=== PATIENT | female | born 1990 | race American Indian/Alaskan Native ===

== ENCOUNTER 2020-09-14 20:00 | Outpatient (CLI) | payer OTHER ==
[2020-09-14 21:38] VITALS: BP 120/74
--- NOTE | 2020-09-14 22:49 | Ultrasound Report ---
ULTRASOUND OBSTETRIC LIMITED ULTRASOUND BIOPHYSICAL PROFILE INDICATION / CLINICAL INFORMATION: BPP/INES/ PRESENTATION. Clinical Gestational Age (GA) in weeks, days: 37 weeks 1 day TECHNIQUE: Transabdominal. COMPARISON: None available. FINDINGS: Fetus A: BREATHING MOVEMENT = 2 GROSS BODY MOVEMENT = 2 TONE = 2 QUALITATIVE AMNIOTIC FLUID VOLUME = 2 TOTAL BIOPHYSICAL SCORE = 8/8 Fetus B: BREATHING MOVEMENT = 2 GROSS BODY MOVEMENT = 2 TONE = 2 QUALITATIVE AMNIOTIC FLUID VOLUME = 2 TOTAL BIOPHYSICAL SCORE = 8/8 HEART RATE (beats per minute): 146 bpm for fetus A, 147 bpm for fetus B. The largest pocket of amniotic fluid for twin A is 2.1 cm: 4.0 cm for twin B PRESENTATION: Cephalic. for twin A, breech for twin B ADDITIONAL FINDINGS: None. IMPRESSION: 1. Biophysical Score = 8/8 for both fetuses. 2. Twin A is in a cephalic presentation. Twin B is in a breech presentation. Signer Name: Tiana Chauhan MD Signed: 09/14/2020 10:45 PM Workstation Name: [id number]
== END 2020-09-14 23:00 | disposition home or self-care (01) ==
LOC: UNDOADMOB 20:00 → LD 20:00 → TRG 20:00 → LD 20:16 → UNDOADMIN 20:16 → TRG 23:00 → UNDODISIN 23:00 → EDSTATUS 09-15 11:30
PROVIDERS: ATTEND Obstetrics & Gynecology
DX: O32.1XX0 Maternal care for breech presentation, not applicable or unspecified (principal); Z3A.37 37 weeks gestation of pregnancy
CPT/HCPCS: 76815; 76819; G0378

== ENCOUNTER 2020-09-15 09:06 | Inpatient (IN) | payer OTHER ==
[2020-09-15] MEDS ORDERED: BICITRA ORAL LIQD 30ML PO SCH (10:00)
[2020-09-15] MEDS ORDERED: OXYTOCIN DRIP 30 UNITS/500 ML BAG IV SCH ×2 (10:00→18:36)
[2020-09-15] MEDS ORDERED: METOCLOPRAMIDE 10 MG/2 ML INJ IV SCH (10:00)
[2020-09-15] MEDS ORDERED: FAMOTIDINE 20 MG/2 ML INJ IV SCH (10:00)
[2020-09-15] MEDS: LACTATED RINGERS 1,000 ML IV SCH ×2 (10:10→11:05)
[2020-09-15 10:39] LABS: Basophils % (Auto) 0.6 % (0.0-1.8); Eosinophils # (Auto) 0.1 K/mm3 (0.0-0.4); Eosinophils % (Auto) 0.7 % (0.0-4.3); Hematocrit 34.5 % (30.3-42.9); Hemoglobin 11.6 gm/dl (10.1-14.3); Lymphocytes # (Auto) 1.4 K/mm3 (1.2-5.4); Lymphocytes % (Auto) 17.5 % (13.4-35.0); Mean Corpuscular HGB Conc 34 % (30-34); Mean Corpuscular Volume 89 fl (79-97); Monocytes # (Auto) 0.8 K/mm3 (0.0-0.8); Monocytes % (Auto) 10.1 % (0.0-7.3); Platelet Count 197 K/mm3 (140-440)
[2020-09-15] MEDS ORDERED: ceFAZolin/Water 2 GM/20 ML 2 GM/20 ML SYRINGE IV ONE (10:46)
--- NOTE | 2020-09-15 11:29 | Anesthesia Consultation ---
Anesthesia Consult and Med Hx Date of service: 09/15/20 - Airway Anesthetic Teeth Evaluation: Good ROM Head & Neck: Adequate Mental/Hyoid Distance: Adequate Mallampati Class: Class II Intubation Access Assessment: Probably Good - Pulmonary Exam CTA: Yes - Cardiac Exam Cardiac Exam: RRR - Pre-Operative Health Status ASA Pre-Surgery Classification: ASA2 Proposed Anesthetic Plan: Spinal - Pulmonary Hx Asthma: No - Cardiovascular System Hx Hypertension: No - Central Nervous System Hx Seizures: No Hx Psychiatric Problems: No - Endocrine Hx Renal Disease: No Hx Hypothyroidism: No Hx Hyperthyroidism: No - Hematic Hx Anemia: No Hx Sickle Cell Disease: No - Other Systems Hx Alcohol Use: No
--- NOTE | 2020-09-15 11:29 | Anesthesia Day of Surgery ---
Anesthesia Day of Surgery - Day of Surgery Patient Examined: Yes Patient H&P Reviewed: Yes Patient is NPO: Yes
--- NOTE | 2020-09-15 11:32 | History and Physical Report ---
History of Present Illness Date of examination: 09/15/20 Date of admission: 09/15/20 09:06 Chief complaint: here for c/section for twin gestation, twin B breech History of present illness: at 37.2wks by LMP c/w U/S. care at [facility]. Pt admits to FMx2, denies feeling ctx, LOF or vag bleeding or headache. Pt came to triage yesterday with vtx/vtx presentation in clinic however repeat u/s at the hospital with twin B the larger baby is breech and IUGR in twin A unchanged. Pt seen by [facility] high risk who recommend delivery at 37wks for twins with IUGR in twin A and marginal cord insertion in twin B Pt therefore did not get the induction and returned to hospital today for her scheduled primary section. Pt has known anemia and denies palpitation or shortness of breath or chest pain. 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, Low vitamin D and supplement received; ) Past Surgical History: no surgical history Social history: other (Marijuana abuse) - Obstetrical History : 4 (previa that resolved this preg at 16wk) Para: 2 Spontaneous Abortions: 1 Number of Living Children: 2 Medications and Allergies Allergies Allergy/AdvReac Type Severity Reaction Status Date / Time No Known Allergies Allergy Unverified 09/14/20 20:34 Home Medications Medication Instructions Recorded Confirmed Last Taken Type Ibuprofen [Motrin] 800 mg PO Q8HR PRN 14 Days #40 09/15/20 Unknown Rx tablet oxyCODONE /ACETAMINOPHEN [Percocet 2 tab PO Q4HR 14 Days #30 tab 09/15/20 Unknown Rx 5/325] Active Meds: Active Medications Citric Acid/Sodium Citrate (Bicitra Oral Liqd 30ml) 30 ml PO ONCE NOEMI Stop: 09/15/20 18:00 Last Admin: 09/15/20 10:58 Dose: 30 ml Documented by: Famotidine (Famotidine 20 Mg/2 Ml Inj) 20 mg IV ONCE NOEMI Stop: 09/15/20 18:00 Last Admin: 09/15/20 10:59 Dose: 20 mg Documented by: Lactated Ringer's (Lactated Ringers) 1,000 mls @ 2,250 mls/hr IV PREOP NOEMI Stop: 09/16/20 10:27 Last Admin: 09/15/20 11:05 Dose: 2,250 mls/hr Documented by: Oxytocin/Sodium Chloride (Pitocin/Ns 30 Unit/500ml) 30 units in 500 mls @ 0 mls/hr IV TITR NOEMI; Protocol Metoclopramide HCl (Metoclopramide 10 Mg/2 Ml Inj) 10 mg IV ONCE NOEMI Stop: 09/15/20 18:00 Last Admin: 09/15/20 10:58 Dose: 10 mg Documented by: - Vital Signs Vital signs: Vital Signs Pulse Pulse Ox 111 H 98 09/15/20 10:24 09/15/20 10:24 Temp Pulse Resp BP Pulse Ox 98.2 F 95 H 18 125/80 96 09/15/20 10:40 09/15/20 11:24 09/15/20 10:40 09/15/20 10:41 09/15/20 11:24 - Physical Exam Breasts: Positive: deferred Cardiovascular: Regular rate Abdomen: Positive: soft (anterior wall edema seen to lower abdomen) Genitourinary (Female): Positive: normal external genitalia Vulva: both: normal (no lesions) Vagina: Positive: normal moisture Uterus: Positive: enlarged (non-tender gravid with twins) Extremities: Positive: normal - Obstetrical FHR: category 1 (for both fetuses) Uterine Contraction Monitor Mode: External Cervical Dilatation: 2 (pelvic exma done in the OR after spinal done) Cervical Effacement Percentage: 50 station: -2 Uterine Contraction Pattern: Absent Results Result Diagrams: 09/15/20 15:15 Abnormal lab results 09/15/20 Range/Units 10:20 RDW 16.0 H (13.2-15.2) % [place] % (Auto) 10.1 H (0.0-7.3) % Seg Neutrophils % 71.1 H (40.0-70.0) % All other labs normal. Assessment and Plan term twin gestation with twin A with IUGR, twin B breech and is larger than twin A; No GBS results available; NO active herpetic lesions 1. Admit for primary section, NICU and anesthesiologist already aware. 2. Pt declines blood transfusion aware of the risks, benefits and alternatives 3. Discussed the risks, benefits and alternatives of section and consents signed All questions encouraged and answered
[2020-09-15] MEDS ORDERED: ceFAZolin/STERILE WATER 2 GM/20 ML SYRINGE IV NR (11:55)
[2020-09-15] MEDS ORDERED: dexAMETHasone 20 MG/5 ML VIAL ONE (12:12)
[2020-09-15] MEDS ORDERED: BUPIVACAINE/PF (0.5%) 5 MG/1 ML 30 ML VIAL INFILTRATI ONE (12:12)
[2020-09-15] MEDS ORDERED: KETOROLAC 30 MG/1 ML INJ ONE (12:12)
[2020-09-15] MEDS ORDERED: ONDANSETRON 4 MG/2 ML INJ ONE (12:12)
[2020-09-15] MEDS ORDERED: ceFAZolin/STERILE WATER 2 GM/20 ML SYRINGE IV ONE (12:15)
[2020-09-15] MEDS ORDERED: WATER FOR IRRIG STERILE 1,500 ML BOTTLE IR ONE (12:30)
[2020-09-15] MEDS ORDERED: SODIUM CHLORIDE 0.9% IRR 1,500 ML BOTTLE IR ONE (12:30)
[2020-09-15] MEDS ORDERED: LACTATED RINGERS 1,000 ML ONE (12:48)
--- NOTE | 2020-09-15 14:04 | Progress Note ---
Regional Anesthesia Block - Regional Anesthesia Block Start Time: 13:55 Stop Time: 14:00 Performed By:: CHARISSA PRESSLEY Procedure: U/S guided bilateral tap block performed for post-operative pain requested by Dr. Cohen. H&P & labs reviewed. Procedure explained, questions answered, consent obtained. Patient in the supine position with ekg, blood pressure cuff and pulse ox on and working in PACU. Timeout performed immediately before start of procedure. Probe placed in the mid-axillary line and the external oblique, internal oblique, and transverse abdominus muscles identified. Skin was cleansed with chlorahexadine 0.5% and allowed to dry. A 4" 20 G Galo echogenic needle was advanced in plane until the tip was in the fascial plane between the internal oblique and the transverse abdominus. After negative aspiration 35 ml/side of [30 ml 0.5% Bupivacaine], [10 mg dexamethasone], and [40 ml sterile saline] was injected in 5 ml increments with negative aspiration in between. Patient tolerated procedure well.
--- NOTE | 2020-09-15 14:04 | Progress Note ---
Spinal Anesthesia Block - Spinal Anesthesia Block Start Time: 11:59 Stop Time: 12:01 Performed by:: CHARISSA PRESSLEY Procedure: Sitting, sterile chlorahexadine 0.5% prep/drape, 1% lidocaine skin local, 25G spinal needle + introducer at L3-4, + CSF, - Heme, [1.9 ml 0.5% bupivacaine + 10 mcg dexmedetomidine] injected, drape removed, patient positioned supine with left uterine displacement, and spinal level verified to be adequate prior to surgery.
--- NOTE | 2020-09-15 14:24 | Procedure Note ---
OB Delivery Note - Delivery Date of Delivery: 09/15/20 Surgeon: AFSHAN DIAS Estimated blood loss: other (823cc total anesthesia and QBL by nurse) - Section Preop diagnosis: other (twin gestation with twin B breech; Twin A with IUGR) Postop diagnosis: other (twin A normal wt and Twin B transverse, back down) section procedure: primary low transverse Disposition: floor Complications: none Narrative: Date: 09/15/20 Surgeon: Afshan Dias MD Preop Dx: Twin gestation, twin A with IUGR, and twin B breech with marginal cord insertion; pt with anterior abdominal wall edema and pt already shaved prior to coming to the hospital Postop Dx: Same, but twin A normal weight and twin B transverse lie with back downward and marginal cord insertion Procedure : Primary Low transverse section Anesthesia: Spinal with tap block in recovery room Intake: 1100cc Output: 200cc clear urine EBL: 600cc per anesthesia and nurse to weigh the sponges and total QBL 823cc After the risks, benefits and alternatives of procedure discussed, patient signed consents and was taken to the operating room. Pt was given spinal anesthesia. After same was adequate, patient was prepped and draped in the usual sterile fashion. Sabillon catheter in place and draining clear urine. Pt was given prophylactic antibiotic per protocol and time out was done. Pfannenstiel skin incision was made and taken sharply to the fascia and the incision extended using electrocautery. Superior edge of the fascia was grasped with brittany clamps and the rectus muscle using blunt dissection and also using electrocautery. Lower portion of the fascia also sharply. Rectus muscle in the midline and Peritoneal cavity entered sharply and extended with good visualization of the bladder. Kolby retractor placed without difficulty. The bladder flap was created sharply using metzenbaum s cissors. Lower uterine segment then entered transversely and uterine incision extended using bandage scissors. Twin A amnioic sac entered with clear fluid noted and Infant delivered vertex, appears normal weight, bulb suctioned, cord clamped and baby handed to waiting pediatricians. Second Amniotic sac then entered for twin B and baby noted to be transverse with back down, and same converted to john breech presentation and delivered without difficulty. Placenta then delivered completely and uterine cavity cleared of all clots and debri. The uterus was not exteriorized and closed in 2 layers using 0-monocryl suture in a running locked fashion and then an additional layer of imbrication suture. Hemoblast placed and Excellent hemostasis noted. Kolby retractor removed. The gutters were cleared of clots and debri and anterior peritoneum closed using 3-0 vicryl suture and rectus muscle reapproximated using 0-vicryl suture. Rectus fascia closed with 0-vicryl suture and subcutaneous tissue copiously irrigated with normal saline and re-approximated using 3-0 vicryl suture. Excellent hemostasis remains. The skin was closed with 4-0 monocryl suture and steristrips placed with pressure dressing. Sponge, lap, instrument and needle counts x3 were normal. Patient tolerated the procedure well and was taken to recovery room stable. Findings: Viable twin A vertex male infant, APGARS 9/9 and weight 2432g. Viable twin B transverse lie male infant, delivered breech; APGARS 9/9; wt 2671g; Placenta appears like mono/reynaldo and same sent to pathology; Normal uterus, tubes and ovaries. Pt given cytotec 800mcg per rectum prophylaxis for overdistended uterus. Anterior wall edema resolved post delivery. - A at 1 minute: 9 at 5 minutes: 9 Infant Gender: Male (wt 2432g; vertex; clear amniotic fluid) B at 1 minute: 9 at 5 minutes: 9 Infant Gender: Male (wt 2671g; transverse lie with back down; clear amniotic fluid)
[2020-09-15] MEDS ORDERED: miSOPROStol 200 MCG TAB PR SCH (14:30)
[2020-09-15] MEDS ORDERED: miSOPROStol 200 MCG TAB ONE (14:42)
[2020-09-15] MEDS ORDERED: METHYLERGONOVINE MALEATE 0.2 MG/ML VIAL IM ONE ×3 (15:00→15:05)
[2020-09-15] MEDS ORDERED: SODIUM CHLORIDE 0.9% 1000 ML 1,000 ML ONE (15:23)
[2020-09-15 15:25] LABS: Hematocrit 33.5 % (30.3-42.9); Hemoglobin 11.1 gm/dl (10.1-14.3); Mean Corpuscular HGB Conc 33 % (30-34); Mean Corpuscular Volume 89 fl (79-97); Platelet Count 216 K/mm3 (140-440); Red Blood Count 3.77 M/mm3 (3.65-5.03); Red Cell Distribution Width 16.7 % (13.2-15.2)
[2020-09-15] MEDS ORDERED: CARBOPROST TROMETHAMINE 250 MCG/1 ML INJ IM ONE ×2 (15:26→15:30)
[2020-09-15] MEDS ORDERED: DIPHENOXYLATE/ATROPINE TAB PO PRN (15:30)
[2020-09-15] MEDS ORDERED: HEPARIN/NS 5000 UNIT/500ML 1,000 ML IR ONE (15:49)
[2020-09-15] MEDS ORDERED: NITROGLYCERIN SYRINGE 0 ML ONE (15:50)
[2020-09-15] MEDS ORDERED: VERAPAMIL 5 MG/2 ML INJ ONE (15:50)
[2020-09-15] MEDS ORDERED: LIDOCAINE 1%/EPINEPHRINE 1:100,000 VIAL (20 ML) INFILTRATI ONE (15:50)
[2020-09-15] MEDS ORDERED: NITROGLYCERIN SYRINGE 3 ML ONE (15:51)
[2020-09-15] MEDS ORDERED: MIDAZOLAM 2 MG/2 ML INJ ONE (15:59)
[2020-09-15] MEDS ORDERED: GELATIN SPONGE SIZE 50 TP ONE (16:07)
--- NOTE | 2020-09-15 16:52 | Consultation ---
History of Present Illness - Reason for Consult Consult date: 09/15/20 post hemorrhage Requesting physician: ANTONIETA DIAS - History of Present Illness at 37.2wks by LMP c/w U/S. care at [facility]. Pt admits to FMx2, denies feeling ctx, LOF or vag bleeding or headache. Pt came to triage yesterday with vtx/vtx presentation in clinic however repeat u/s at the hospital with twin B the larger baby is breech and IUGR in twin A unchanged. Pt seen by [facility] high risk who recommend delivery at 37wks for twins with IUGR in twin A and marginal cord insertion in twin B Pt therefore did not get the induction and returned to hospital today for her scheduled primary section. Pt has known anemia and denies palpitation or shortness of breath or chest pain. Patient is status post and has atony and hemorrhage. Dr. Dias performed all medical methods of dealing with uterine atony which but bleeding was refractory to treatment. Vascular consulted for possible uterine fibroid embolization. Discussed with patient. Risks, benefits, and alternatives discussed. Patient agreed with procedure. Also discussed blood with patient. Risks, benefits, and alternatives discussed regarding blood and patient has agreed to blood if necessary. 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, Low vitamin D and supplement received; ) Past Surgical History: no surgical history Social history: other (Marijuana abuse) : 4 (previa that resolved this preg at 16wk) Para: 2 Spontaneous Abortions: 1 Number of Living Children: 2 Past History Social history: other (Marijuana abuse) Medications and Allergies Allergies Allergy/AdvReac Type Severity Reaction Status Date / Time No Known Allergies Allergy Unverified 09/14/20 20:34 Home Medications Medication Instructions Recorded Confirmed Last Taken Type Ibuprofen [Motrin] 800 mg PO Q8HR PRN 14 Days #40 09/15/20 Unknown Rx tablet oxyCODONE /ACETAMINOPHEN [Percocet 2 tab PO Q4HR 14 Days #30 tab 09/15/20 Unknown Rx 5/325] Active Meds: Active Medications Citric Acid/Sodium Citrate (Bicitra Oral Liqd 30ml) 30 ml PO ONCE NOEMI Stop: 09/15/20 18:00 Last Admin: 09/15/20 10:58 Dose: 30 ml Documented by: Diphenoxylate HCl/Atropine (Diphenoxylate/Atropine Tab) 1 tab PO Q6H PRN PRN Reason: Diarrhea Famotidine (Famotidine 20 Mg/2 Ml Inj) 20 mg IV ONCE NOEMI Stop: 09/15/20 18:00 Last Admin: 09/15/20 10:59 Dose: 20 mg Documented by: Lactated Ringer's (Lactated Ringers) 1,000 mls @ 2,250 mls/hr IV PREOP NOEMI Stop: 09/16/20 10:27 Last Admin: 09/15/20 11:05 Dose: 2,250 mls/hr Documented by: Oxytocin/Sodium Chloride (Pitocin/Ns 30 Unit/500ml) 30 units in 500 mls @ 0 mls/hr IV TITR NOEMI; Protocol Metoclopramide HCl (Metoclopramide 10 Mg/2 Ml Inj) 10 mg IV ONCE NOEMI Stop: 09/15/20 18:00 Last Admin: 09/15/20 10:58 Dose: 10 mg Documented by: Misoprostol (Misoprostol 200 Mcg Tab) 800 mcg NC ONCE NOEMI Stop: 09/15/20 20:00 Review of Systems All systems: negative (see HPI) Exam - Constitutional Vitals: Temp Pulse Resp BP Pulse Ox 97.7 F 85 17 129/81 100 09/15/20 13:48 09/15/20 14:30 09/15/20 14:30 09/15/20 14:30 09/15/20 14:30 General appearance: Present: mild distress (Hypotensive tachycardic) - EENT Eyes: Present: EOM intact ENT: hearing intact - Neck Neck: Present: normal ROM - Respiratory Respiratory effort: normal - Extremities Extremities: normal temperature, normal color - Abdominal General gastrointestinal: Present: tender (Status post with surgical dressings) - Psychiatric Psychiatric: appropriate mood/affect, cooperative Results - Labs CBC & Chem 7: 09/15/20 15:15 Labs: Abnormal lab results 09/15/20 09/15/20 Range/Units 10:20 15:15 WBC 14.1 H (4.5-11.0) K/mm3 RDW 16.0 H 16.7 H (13.2-15.2) % [place] % (Auto) 10.1 H (0.0-7.3) % Seg Neutrophils % 71.1 H (40.0-70.0) % Assessment and Plan 30-year-old female status post complicated by uterine atony/hemorrhage status post medical treatment but patient was refractory to treatment. Patient is actively hypotensive and tachycardic. Risks, benefits, and alternatives of uterine artery embolization with Gelfoam discussed with patient. Patient agreed with procedure. Risks, benefits, and alternatives of blood transfusion and possible central line discussed with patient, patient agreed with procedure.
--- NOTE | 2020-09-15 16:53 | Operative Report ---
Operative Report Operative Report: EXAM: 1. Ultrasound-guided access of the left radial artery 2. Selection of the left internal iliac artery with angiography. 3. Selection of the left uterine artery with angiography 4. Gelfoam embolization of the left uterine artery 5. Selection of the right internal iliac artery with angiography 6. Selection of the right uterine artery with angiography 7. Gelfoam embolization of the right uterine artery DATE: 09/15/2020 VISUAL STYLIST: BEBETO ANDERSON MD INDICATION: hemorrhage atony status post with twins with need for uterine artery embolization for hemodynamic stabilization. MEDICATIONS: Please see nursing report for full details. DEVICES: Embolic agent - gelfoam slurry CONTRAST: Please see [employer] report for full details PROCEDURE: The risks, benefits, and alternatives were discussed; written informed consent was obtained. Patient was brought to the angiography suite and placed on the angiography table in the supine position. The left wrist and neck groin was prepped and draped in a sterile fashion. Ultrasound was used to evaluate the left radial artery which was patent. Under direct ultrasound guidance, a 21-gauge micropuncture needle was used to access the left radial artery. Blood was obtained. 0.018 inch wire was passed into the left radial artery. Needle was exchanged for a 4/5 glide sheath slender. Radial cocktail was administered without heparin. Angled glide catheter was then used with a Bentson wire to select the thoracic aorta, and the abdominal aorta. Angled catheter was then used to select the left internal iliac artery. Digital subtraction angiography was performed. The left uterine artery was then selected. Digital subtraction angiography was performed. Gelfoam embolization was performed of the left uterine artery until stasis was achieved. Catheter was retracted to the left internal iliac artery and repeat digital subtraction angiography was performed demonstrating stasis of the left uterine artery. Angled catheter was then used to select the right internal iliac artery. Digital subtraction angiography was performed. The right uterine artery was then selected. Digital subtraction angiography was performed. Gelfoam embolization was performed of the right uterine artery until 4-5 beat stasis was achieved. Catheter was retracted to the right internal iliac artery and repeat digital subtraction was performed demonstrating stasis of the right uterine artery. Catheter was then used to select the distal abdominal aorta and digital subtraction angiography was performed demonstrating complete stasis of the left uterine artery and 4-5 beat stasis of the right uterine artery. At this point, all wires and catheters were removed. 200 mcg of nitroglycerin was injected to the sheath after the sheath was bled back. Sheath was then removed and pressure bandage was applied. The patient tolerated the procedure without incident. Patient had hemodynamically improve during the procedure. I decided there is no need for central line. The patient was transported from the angiography suite in stable condition. FINDINGS: 1. Digital subtraction angiography of the left internal iliac artery demonstrated normal branching pattern with a hypertrophic left uterine artery supplying the gravid uterus. No pseudoaneurysm or extravasation noted. 2. Digital subtraction angiography after Gelfoam embolization of the left uterine artery demonstrated stasis of the left uterine artery. 3. Digital subtraction angiography of the right internal iliac artery demonstrated normal branching pattern with hypertrophic right uterine artery supplying the gravid uterus. No pseudoaneurysm or extravasation noted. 4. Digital subtraction angiography after Gelfoam embolization of the right uterine artery demonstrated 4-5 beat stasis of the right uterine artery. 5. Digital subtraction angiography demonstrated patency of the infrarenal abdominal aorta, bilateral common iliac arteries, external iliac arteries, and internal iliac arteries. There was 4-5 beat stasis of the right uterine artery and stasis of the left uterine artery. IMPRESSION: Successful bilateral pelvic angiograms and Gelfoam embolization of the uterine arteries.
--- NOTE | 2020-09-15 16:53 | Post Operative Note ---
Date of procedure: 09/15/20 Pre-op diagnosis: uterine atony and hemorrhage Post-op diagnosis: same Findings: No extravasation or pseudoaneurysm. Procedure: 1. Ultrasound-guided access of the left radial artery 2. Selection of the left internal iliac artery with angiography. 3. Selection of the left uterine artery with angiography 4. Gelfoam embolization of the left uterine artery 5. Selection of the right internal iliac artery with angiography 6. Selection of the right uterine artery with angiography 7. Gelfoam embolization of the right uterine artery Anesthesia: MAC Surgeon: BEBETO ANDERSON Estimated blood loss: minimal Condition: stable Disposition: PACU
[2020-09-15] MEDS ORDERED: ONDANSETRON 4 MG/2 ML INJ IV PRN (17:00)
[2020-09-15] MEDS ORDERED: MORPHINE 2 MG/1 ML INJ IV SCH (17:00)
[2020-09-15] MEDS ORDERED: MORPHINE 2 MG/1 ML INJ ONE (17:05)
--- NOTE | 2020-09-15 18:03 | Event Note ---
Date: 09/15/20 (-) I returned to recovery to evaluate patient and noticed a large amount of blood with clots noted on peripad. I called the recovery room nurse to bedside. Fundus firm and vitals with maternal tacchycardia 103-110 and BP normal. Pt received 1 bag of 30units IV of Pitocin. Pt given cytotec 800mcg per rectum by me and bimanual done to evacuate lower uterine segment clots. Bleeding still persistent. Methergine 0.2mg IM given followed by hemabate and pt still with bleeding. Urine output less than 100cc and very concentrated. I therefore explained to patient that her uterine atony is not resolving with uterotonics and she declines blood transfusion. Pt told I will consult IR for uterine artery embolization while she is hemodynamically stable for which she accepted. I placed the consult in the computer and verbally spoke with Dr. Randall who came to the bedside immediately and consented the patient and then we took the patient to have the [place] procedure at 3:40pm. I remained with the patient during the procedure and took her back to labor and delivery suite for closer monitoring. Hgb taken in recovery room noted to be 11.1 and QBL calculated by nursing staff was 1511cc at 3:40pm. Will repeat cbc in 6hrs. Pt notified by Interventional radiologist Dr. Randall in my presence to keep pressure bandage to left wrist until 9pm where radial artery was used and pt verbalized understanding. If pt remains stable, I will transfer to . Urine output now 100cc/hr and lochia now small dark blood without clots and vitals nor mal with pulse 70-80's and BP slightly increased 131/91 most likely due to methergine given earlier. Will continue to monitor closely.
[2020-09-15 18:32] LABS: Amphetamine Screen,Urine Negative; Cannabinoid Screen,Urine Negative; Cocaine Screen,Urine Negative; Methadone Screen,Urine Negative; Opiate Screen,Urine Negative
[2020-09-15] MEDS ORDERED: SIMETHICONE 80 MG CHEW TAB PO PRN (18:36)
[2020-09-15] MEDS ORDERED: WITCH HAZEL/ GLYCERIN PAD TP PRN (18:36)
[2020-09-15] MEDS ORDERED: MORPHINE 2 MG/1 ML INJ IV PRN (18:36)
[2020-09-15] MEDS ORDERED: NALOXONE 0.4 MG/1 ML INJ IV PRN (18:36)
[2020-09-15] MEDS ORDERED: MAGNESIUM HYDROXIDE (MOM) ORAL LIQD UDC PO PRN (18:36)
[2020-09-15] MEDS ORDERED: LANOLIN/ZINC/DIMETHICONE (LANSINOH) 7 GM TP PRN (18:36)
[2020-09-15 18:38] LABS: Hemoglobin 11.6 gm/dl (10.1-14.3); Mean Corpuscular HGB Conc 34 % (30-34); Mean Corpuscular Volume 89 fl (79-97); Platelet Count 203 K/mm3 (140-440); Red Blood Count 3.83 M/mm3 (3.65-5.03); Red Cell Distribution Width 15.9 % (13.2-15.2)
[2020-09-15 18:47] LABS: Benzodiazepines Screen,Urine Positive
[2020-09-15] MEDS ORDERED: ceFAZolin/NS 1 GM/50 ML 1 GM/50 ML BAG IV SCH (19:00)
[2020-09-15] MEDS ORDERED: SODIUM CHLORIDE 0.9% 1000 ML 1,000 ML IV ONE (19:02)
[2020-09-15 19:39] LABS: Alanine Aminotransferase 17 units/L (7-56); Albumin 3.3 g/dL (3.9-5); Blood Urea Nitrogen 8 mg/dL (7-17); Calcium 8.2 mg/dL (8.4-10.2); Hemolysis Index 48
[2020-09-15 19:39] LABS: Band Neutrophils # (Manual) 0.2 K/mm3; Platelet Estimate Consistent w Auto; RBC Morphology Normal; Total Cells Counted 100; Toxic Granulation 1+
[2020-09-15 19:40] LABS: Alanine Aminotransferase 17 units/L (7-56); BUN/Creatinine Ratio 16; Uric Acid 5.2 mg/dL (3.5-7.6)
[2020-09-15] MEDS: HYDROmorphone 1 MG/1 ML INJ IV PRN (19:54)
[2020-09-15] MEDS ORDERED: NITROGLYCERIN 2% OINT 1 GM TP ONE (20:20)
[2020-09-15] MEDS: AMPICILLIN/NS 2 GM/100 ML 2 GM/100 ML BAG IV SCH (20:33)
--- NOTE | 2020-09-15 20:41 | Event Note ---
Date: 09/15/20 pt evaluated after nurse told me pt's left hand where the pressure bandage placed by IR was blue in color. Dr. Randall, Interventional radiologist, called by me and he gave nurse the order to apply nitropaste med to the affected area. PIH labs seen with elevated uric acid nad LDH. Pt remains without headache. Bandemia noted with wbc of 22,000 therefore will give amp/gent/clinda for broad spectrum coverage; stop the ancef and also order 2 sets of blood culture. Pt also with pelvic pain uncontrolled with IV morphine, therefore dilaudid given and toradol not given with PPH. BP trending upwards now 140/96. Will give mag sulfate for seizure prophylaxis if BP severe or if pt has headache. Pt denies headache at this time. Nurse told if mag sulfate started, the nitropaste should be stopped. Babies x2 to bedside and pt has started bonding. Pt's mother and FOB also to bedside giving pt support. Plan of care discussed. All questions encouraged and answered
[2020-09-15] MEDS: GENTAMICIN 400 MG in SODIUM CHLORIDE 0.9% 100 ML IV SCH (21:42)
[2020-09-16] MEDS: oxyCODONE /ACETAMINOPHEN 5-325MG TAB PO PRN ×3 (02:18→15:39)
[2020-09-16] MEDS: IBUPROFEN 800 MG TAB PO PRN ×3 (02:19→22:17)
[2020-09-16 03:33] LABS: Hematocrit 27.5 % (30.3-42.9); Hemoglobin 9.3 gm/dl (10.1-14.3); Mean Corpuscular HGB Conc 34 % (30-34); Mean Corpuscular Volume 88 fl (79-97); Platelet Count 212 K/mm3 (140-440); Red Blood Count 3.13 M/mm3 (3.65-5.03); Red Cell Distribution Width 15.9 % (13.2-15.2)
[2020-09-16 04:18] LABS: Total Cells Counted 100
[2020-09-16 04:19] LABS: Platelet Estimate Consistent w Auto; RBC Morphology Normal; Toxic Granulation 1+; Toxic Vacuolation Few
[2020-09-16] MEDS: AMPICILLIN/NS 2 GM/100 ML 2 GM/100 ML BAG IV SCH ×3 (04:47→22:03)
[2020-09-16] MEDS: ASCORBIC ACID 500 MG TAB PO SCH ×2 (08:52→22:09)
[2020-09-16] MEDS: FERROUS SULFATE 325 MG TAB PO SCH ×2 (08:52→22:09)
--- NOTE | 2020-09-16 08:54 | Progress Note ---
Assessment and Plan PPH IS STABLE. HCT C/W 27 %. VSS. PT MUCH IMPROVED. - Patient Problems (1) Anemia Current Visit: Yes Status: Acute Qualifiers: Other causes of anemia: acute posthemorrhagic Subjective - Subjective Date of service: 09/16/20 Principal diagnosis: C/s for twins, [place] FOR PP HEMMORHAGE, ANEMIA FORM BLOOD LOSS Patient reports: appetite normal (TWINS) : doing well (TWINS) Objective - Vital Signs Latest vital signs: Vital Signs Temp Pulse Resp BP BP Pulse Ox 09/16/20 06:31 82 143/83 09/16/20 05:40 99 H 92 09/16/20 05:39 102 H 98 09/16/20 05:35 108 H 95 09/16/20 05:29 106 H 97 09/16/20 05:24 110 H 97 09/16/20 05:19 95 09/16/20 05:15 100 H 141/93 91 09/16/20 04:54 98 H 99 09/16/20 04:49 100 H 99 09/16/20 04:44 100 H 98 09/16/20 04:39 102 H 98 09/16/20 04:34 89 98 09/16/20 04:29 105 H 96 09/16/20 04:24 89 117/69 97 09/16/20 04:18 97 H 98 09/16/20 04:14 85 97 09/16/20 04:09 98 H 97 09/16/20 04:04 97 H 96 09/16/20 03:59 101 H 98 09/16/20 03:54 102 H 97 09/16/20 03:49 96 H 97 09/16/20 03:44 111 H 92 09/16/20 03:43 112 H 92 09/16/20 03:39 89 97 09/16/20 03:34 97 H 98 09/16/20 03:29 115 H 89 09/16/20 03:24 99 H 121/82 98 09/16/20 03:19 106 H 98 09/16/20 03:14 91 H 98 09/16/20 03:09 92 H 98 09/16/20 03:04 84 98 09/16/20 02:59 92 H 98 09/16/20 02:54 81 98 09/16/20 02:49 88 98 09/16/20 02:44 86 98 09/16/20 02:39 84 98 09/16/20 02:34 91 H 98 09/16/20 02:29 86 99 09/16/20 02:24 95 H 99 09/16/20 02:19 89 98 09/16/20 02:14 81 98 09/16/20 02:09 110 H 98 09/16/20 02:04 79 125/75 97 09/16/20 01:59 103 H 96 09/16/20 01:54 92 H 97 09/16/20 01:49 94 H 96 09/16/20 01:44 101 H 96 09/16/20 01:39 104 H 96 09/16/20 01:34 92 H 115/69 95 09/16/20 01:29 106 H 96 09/16/20 01:24 85 97 09/16/20 01:19 92 H 97 09/16/20 01:14 99 H 97 09/16/20 01:08 96 H 97 09/16/20 01:04 86 118/75 98 09/16/20 00:59 97 H 97 09/16/20 00:54 111 H 97 09/16/20 00:50 97.7 F 18 09/16/20 00:49 105 H 97 09/16/20 00:44 108 H 96 09/16/20 00:39 105 H 96 09/16/20 00:34 86 121/69 96 09/16/20 00:29 97 H 97 09/16/20 00:24 108 H 97 09/16/20 00:19 110 H 97 09/16/20 00:14 102 H 98 09/16/20 00:09 106 H 97 09/16/20 00:04 97 H 119/75 98 09/15/20 23:59 96 H 98 09/15/20 23:54 116 H 97 09/15/20 23:49 109 H 96 09/15/20 23:44 108 H 97 09/15/20 23:39 114 H 97 09/15/20 23:34 109 H 121/77 97 09/15/20 23:29 106 H 97 09/15/20 23:24 103 H 97 09/15/20 23:19 109 H 97 09/15/20 23:14 104 H 97 06/07/21 23:09 100 H 97 09/15/20 23:04 93 H 125/74 97 09/15/20 22:59 96 H 97 09/15/20 22:54 97 H 97 09/15/20 22:49 92 H 98 09/15/20 22:44 86 97 09/15/20 22:39 91 H 97 09/15/20 22:34 90 130/82 97 09/15/20 22:29 95 H 96 09/15/20 22:24 97 H 97 09/15/20 22:19 83 98 09/15/20 22:17 97.2 F L 09/15/20 22:14 90 98 09/15/20 22:09 91 H 98 09/15/20 22:04 91 H 126/89 98 09/15/20 21:59 99 H 98 09/15/20 21:54 87 97 09/15/20 21:49 83 98 09/15/20 21:44 78 98 09/15/20 21:39 90 98 09/15/20 21:34 74 136/84 99 09/15/20 21:29 72 99 09/15/20 21:24 74 99 09/15/20 21:19 81 99 09/15/20 21:14 76 99 09/15/20 21:09 75 99 09/15/20 21:04 68 151/98 99 09/15/20 20:59 69 99 09/15/20 20:54 74 99 09/15/20 20:49 70 98 09/15/20 20:48 74 142/93 09/15/20 20:44 68 99 09/15/20 20:39 79 98 09/15/20 20:34 80 142/93 98 09/15/20 20:29 74 98 09/15/20 20:24 73 98 09/15/20 20:19 78 97 09/15/20 20:14 77 97 09/15/20 20:09 74 98 09/15/20 20:04 76 97 09/15/20 19:59 73 98 09/15/20 19:54 63 140/94 97 09/15/20 19:49 75 99 09/15/20 19:44 67 99 09/15/20 19:39 72 136/96 98 09/15/20 19:34 72 94 06/07/21 19:33 69 92 09/15/20 19:29 72 98 09/15/20 19:24 67 147/92 98 09/15/20 19:19 68 98 09/15/20 19:14 76 98 09/15/20 19:10 97.5 F L 18 09/15/20 19:09 75 146/86 99 09/15/20 19:04 73 99 09/15/20 18:59 66 99 09/15/20 18:54 63 144/82 97 09/15/20 18:49 77 97 09/15/20 18:44 72 98 09/15/20 18:40 69 138/97 09/15/20 18:39 75 139/102 99 09/15/20 18:34 70 98 09/15/20 18:29 86 96 09/15/20 18:24 82 130/94 97 09/15/20 18:19 70 98 09/15/20 18:15 97.3 F L 20 09/15/20 18:14 73 97 09/15/20 18:09 63 133/90 96 09/15/20 18:04 72 100 09/15/20 17:59 68 99 09/15/20 17:54 70 99 09/15/20 17:49 70 99 09/15/20 17:44 68 98 09/15/20 15:37 119/94 09/15/20 15:00 115/77 09/15/20 14:45 84 18 138/88 100 09/15/20 14:30 85 17 129/81 100 09/15/20 14:15 69 19 131/83 100 09/15/20 14:00 75 17 127/86 100 09/15/20 13:50 68 18 117/70 100 09/15/20 13:48 97.7 F 70 17 121/72 100 09/15/20 11:39 94 H 97 09/15/20 11:34 96 H 97 09/15/20 11:29 95 H 97 09/15/20 11:24 95 H 96 09/15/20 11:19 113 H 97 09/15/20 11:14 104 H 98 09/15/20 11:09 96 H 99 09/15/20 11:04 92 H 99 09/15/20 10:59 102 H 98 09/15/20 10:54 91 H 99 09/15/20 10:49 101 H 99 09/15/20 10:44 91 H 99 09/15/20 10:41 90 125/80 09/15/20 10:40 98.2 F 105 H 18 125/80 100 09/15/20 10:39 92 H 98 09/15/20 10:34 97 H 97 09/15/20 10:29 104 H 97 09/15/20 10:24 111 H 98 Intake and Output 09/15/20 09/16/20 09/16/20 23:59 07:59 15:59 Intake Total 151.5 Output Total 800 1000 Balance -648.5 -1000 Intake: IV 151.5 AMPICILLIN/NS 2 GM/100 ML 100 2 gm In 100 ml @ 100 mls /hr IV Q6H NOEMI Rx#: [id number] CLEOCIN 900 MG/50 mL 900 50 mg In 50 ml @ 100 mls/hr IV Q8H [facility] Rx#:[id number] Output: Urine 800 1000 Indwelling Catheter 800 1000 Other: Total, Output Amount 400 1000 - Exam Breasts: Present: normal Cardiovascular: Present: Regular rate Lungs: Present: Clear to auscultation Abdomen: Present: normal appearance, soft Vulva: both: normal Uterus: Present: normal, firm Extremities: Present: normal Deep Tendon Reflex Grade: Normal +2 Incision: Present: normal - Labs Labs: Abnormal lab results 09/15/20 09/15/20 09/15/20 Range/Units 10:20 15:15 18:19 WBC 14.1 H 22.2 H (4.5-11.0) K/mm3 RBC (3.65-5.03) M/mm3 Hgb (10.1-14.3) gm/dl Hct (30.3-42.9) % RDW 16.0 H 16.7 H 15.9 H (13.2-15.2) % [place] % (Auto) 10.1 H (0.0-7.3) % Seg Neutrophils % 71.1 H (40.0-70.0) % Seg Neuts % (Manual) 95.0 H (40.0-70.0) % Lymphocytes % (Manual) 1.0 L (13.4-35.0) % Seg Neutrophils # Man 21.1 H (1.8-7.7) K/mm3 Lymphocytes # (Manual) 0.2 L (1.2-5.4) K/mm3 Carbon Dioxide (22-30) mmol/L Creatinine (0.6-1.2) mg/dL Glucose (65-100) mg/dL Calcium (8.4-10.2) mg/dL Lactate Dehydrogenase (91-180) units/L Total Protein (6.3-8.2) g/dL Albumin (3.9-5) g/dL 09/15/20 09/15/20 09/16/20 Range/Units 19:04 19:04 03:21 WBC 24.4 H (4.5-11.0) K/mm3 RBC 3.13 L (3.65-5.03) M/mm3 Hgb 9.3 L (10.1-14.3) gm/dl Hct 27.5 L D (30.3-42.9) % RDW 15.9 H (13.2-15.2) % [place] % (Auto) (0.0-7.3) % Seg Neutrophils % (40.0-70.0) % Seg Neuts % (Manual) 93.0 H (40.0-70.0) % Lymphocytes % (Manual) 4.0 L (13.4-35.0) % Seg Neutrophils # Man 22.7 H (1.8-7.7) K/mm3 Lymphocytes # (Manual) 1.0 L (1.2-5.4) K/mm3 Carbon Dioxide 20 L (22-30) mmol/L Creatinine 0.5 L 0.5 L (0.6-1.2) mg/dL Glucose 102 H (65-100) mg/dL Calcium 8.2 L (8.4-10.2) mg/dL Lactate Dehydrogenase 346 H (91-180) units/L Total Protein 5.2 L (6.3-8.2) g/dL Albumin 3.3 L (3.9-5) g/dL
[2020-09-16] MEDS: DOCUSATE SODIUM 100 MG CAP PO SCH ×2 (09:00→22:09)
[2020-09-16] MEDS ORDERED: FERROUS SULFATE 325 MG TAB PO SCH (10:00)
--- NOTE | 2020-09-16 13:25 | Post Anesthesia Evaluation ---
- Post Anesthesia Evaluation Patient Participated: Yes Airway Patent: Yes Stable Respiratory Function: Yes Nausea/Vomiting: No Temp > 96.8F: Yes Pain Manageable: Yes Adequeate Hydration: Yes Anesthesia Complications: No Block Receding Appropriately: Yes
--- NOTE | 2020-09-16 13:38 | Progress Note ---
Assessment and Plan 30-year-old female with twin status post with atony and hemorrhage requiring uterine artery embolization with Gelf[place]. Patient done well from procedure. No further bleeding. Compressive dressing was removed last night due to blue discoloration of the first and second digit which improved after compressive dressing removal. Nitropaste was applied to the left hand and was subsequently removed after 4 hours. Today patient has a palpable left radial and ulnar pulse with no discoloration of the hand, no sensory dysfunction, and no motor dysfunction. Do not lift more than 10 pounds for 1 week with the left hand. Doing well from vascular perspective. Subjective Date of service: 09/16/20 Principal diagnosis: C/s for twins, [place] FOR PP HEMMORHAGE, ANEMIA FORM BLOOD LOSS Interval history: Doing well. Minimal bleeding overnight. Palpable left ulnar and radial pulse. Capillary refill less than 2 seconds. No paresthesias or motor dysfunction of the left upper extremity. Objective - Constitutional Vitals: Vital Signs - 12hr 09/16/20 09/16/20 09/16/20 01:39 01:44 01:49 Temperature Pulse Rate 104 H 101 H 94 H Respiratory Rate Blood Pressure Blood Pressure [Right] O2 Sat by Pulse 96 96 96 Oximetry 09/16/20 09/16/20 09/16/20 01:54 01:59 02:04 Temperature Pulse Rate 92 H 103 H 79 Respiratory Rate Blood Pressure 125/75 Blood Pressure [Right] O2 Sat by Pulse 97 96 97 Oximetry 09/16/20 09/16/20 09/16/20 02:09 02:14 02:19 Temperature Pulse Rate 110 H 81 89 Respiratory Rate Blood Pressure Blood Pressure [Right] O2 Sat by Pulse 98 98 98 Oximetry 09/16/20 09/16/20 09/16/20 02:24 02:29 02:34 Temperature Pulse Rate 95 H 86 91 H Respiratory Rate Blood Pressure Blood Pressure [Right] O2 Sat by Pulse 99 99 98 Oximetry 09/16/20 09/16/20 09/16/20 02:39 02:44 02:49 Temperature Pulse Rate 84 86 88 Respiratory Rate Blood Pressure Blood Pressure [Right] O2 Sat by Pulse 98 98 98 Oximetry 09/16/20 09/16/20 09/16/20 02:54 02:59 03:04 Temperature Pulse Rate 81 92 H 84 Respiratory Rate Blood Pressure Blood Pressure [Right] O2 Sat by Pulse 98 98 98 Oximetry 09/16/20 09/16/20 09/16/20 03:09 03:14 03:19 Temperature Pulse Rate 92 H 91 H 106 H Respiratory Rate Blood Pressure Blood Pressure [Right] O2 Sat by Pulse 98 98 98 Oximetry 09/16/20 09/16/20 09/16/20 03:24 03:29 03:34 Temperature Pulse Rate 99 H 115 H 97 H Respiratory Rate Blood Pressure 121/82 Blood Pressure [Right] O2 Sat by Pulse 98 89 98 Oximetry 09/16/20 09/16/20 09/16/20 03:39 03:43 03:44 Temperature Pulse Rate 89 112 H 111 H Respiratory Rate Blood Pressure Blood Pressure [Right] O2 Sat by Pulse 97 92 92 Oximetry 09/16/20 09/16/20 09/16/20 03:49 03:54 03:59 Temperature Pulse Rate 96 H 102 H 101 H Respiratory Rate Blood Pressure Blood Pressure [Right] O2 Sat by Pulse 97 97 98 Oximetry 09/16/20 09/16/20 09/16/20 04:04 04:09 04:14 Temperature Pulse Rate 97 H 98 H 85 Respiratory Rate Blood Pressure Blood Pressure [Right] O2 Sat by Pulse 96 97 97 Oximetry 09/16/20 09/16/20 09/16/20 04:18 04:24 04:29 Temperature Pulse Rate 97 H 89 105 H Respiratory Rate Blood Pressure 117/69 Blood Pressure [Right] O2 Sat by Pulse 98 97 96 Oximetry 09/16/20 09/16/20 09/16/20 04:34 04:39 04:44 Temperature Pulse Rate 89 102 H 100 H Respiratory Rate Blood Pressure Blood Pressure [Right] O2 Sat by Pulse 98 98 98 Oximetry 09/16/20 09/16/20 09/16/20 04:49 04:54 05:15 Temperature Pulse Rate 100 H 98 H 100 H Respiratory Rate Blood Pressure 141/93 Blood Pressure [Right] O2 Sat by Pulse 99 99 91 Oximetry 09/16/20 09/16/20 09/16/20 05:19 05:24 05:29 Temperature Pulse Rate 110 H 106 H Respiratory Rate Blood Pressure Blood Pressure [Right] O2 Sat by Pulse 95 97 97 Oximetry 09/16/20 09/16/20 09/16/20 05:35 05:39 05:40 Temperature Pulse Rate 108 H 102 H 99 H Respiratory Rate Blood Pressure Blood Pressure [Right] O2 Sat by Pulse 95 98 92 Oximetry 09/16/20 09/16/20 09/16/20 06:31 07:30 08:50 Temperature 98.1 F Pulse Rate 82 82 Respiratory 16 Rate Blood Pressure 143/83 142/70 Blood Pressure [Right] O2 Sat by Pulse Oximetry 09/16/20 10:14 Temperature 98.0 F Pulse Rate 94 H Respiratory 20 Rate Blood Pressure Blood Pressure 112/69 [Right] O2 Sat by Pulse 99 Oximetry General appearance: Present: no acute distress - EENT ENT: hearing intact - Respiratory Respiratory effort: normal Extremities: pulses intact (Left radial and ulnar pulse), normal temperature (Left upper extremity), normal color (Left upper extremity) - Psychiatric Psychiatric: appropriate mood/affect, cooperative - Labs CBC & Chem 7: 09/16/20 03:21 09/15/20 19:04 Labs: Abnormal lab results 09/15/20 09/15/20 09/15/20 Range/Units 15:15 18:19 19:04 WBC 14.1 H 22.2 H (4.5-11.0) K/mm3 RBC (3.65-5.03) M/mm3 Hgb (10.1-14.3) gm/dl Hct (30.3-42.9) % RDW 16.7 H 15.9 H (13.2-15.2) % Seg Neuts % (Manual) 95.0 H (40.0-70.0) % Lymphocytes % (Manual) 1.0 L (13.4-35.0) % Seg Neutrophils # Man 21.1 H (1.8-7.7) K/mm3 Lymphocytes # (Manual) 0.2 L (1.2-5.4) K/mm3 Carbon Dioxide (22-30) mmol/L Creatinine 0.5 L (0.6-1.2) mg/dL Glucose (65-100) mg/dL Calcium (8.4-10.2) mg/dL Lactate Dehydrogenase 346 H (91-180) units/L Total Protein (6.3-8.2) g/dL Albumin (3.9-5) g/dL 09/15/20 09/16/20 Range/Units 19:04 03:21 WBC 24.4 H (4.5-11.0) K/mm3 RBC 3.13 L (3.65-5.03) M/mm3 Hgb 9.3 L (10.1-14.3) gm/dl Hct 27.5 L D (30.3-42.9) % RDW 15.9 H (13.2-15.2) % Seg Neuts % (Manual) 93.0 H (40.0-70.0) % Lymphocytes % (Manual) 4.0 L (13.4-35.0) % Seg Neutrophils # Man 22.7 H (1.8-7.7) K/mm3 Lymphocytes # (Manual) 1.0 L (1.2-5.4) K/mm3 Carbon Dioxide 20 L (22-30) mmol/L Creatinine 0.5 L (0.6-1.2) mg/dL Glucose 102 H (65-100) mg/dL Calcium 8.2 L (8.4-10.2) mg/dL Lactate Dehydrogenase (91-180) units/L Total Protein 5.2 L (6.3-8.2) g/dL Albumin 3.3 L (3.9-5) g/dL Medications & Allergies - Medications Allergies/Adverse Reactions: Allergies No Known Allergies Allergy (Unverified 09/14/20 20:34) Home Medications: Home Medications Medication Instructions Recorded Confirmed Last Taken Type Ibuprofen [Motrin] 800 mg PO Q8HR PRN 14 Days #40 09/15/20 Unknown Rx tablet oxyCODONE /ACETAMINOPHEN [Percocet 2 tab PO Q4HR 14 Days #30 tab 09/15/20 Unknown Rx 5/325] Active Medications: Generic Name Dose Route Start Last Admin Trade Name Freq PRN Reason Stop Dose Admin Ascorbic Acid 500 mg 09/16/20 08:00 09/16/20 08:52 Ascorbic Acid 500 Mg Tab PO 500 mg TID NOEMI Administration Diphenoxylate HCl/Atropine 1 tab 09/15/20 15:30 Diphenoxylate/Atropine Tab PO Q6H PRN Diarrhea Docusate Sodium 100 mg 09/16/20 10:00 09/16/20 09:00 Docusate Sodium 100 Mg Cap PO 100 mg BID NOEMI Administration Ferrous Sulfate 325 mg 09/16/20 08:00 09/16/20 08:52 Ferrous Sulfate 325 Mg Tab PO 325 mg TID NOEMI Administration Hydromorphone HCl 1 mg 09/15/20 19:41 09/15/20 19:54 Hydromorphone 1 Mg/1 Ml Inj IV 1 mg Q2H PRN Administration Pain , Severe (7-10) Oxytocin/Sodium Chloride 30 units in 500 mls @ 0 mls/hr 09/15/20 10:00 Pitocin/Ns 30 Unit/500ml IV TITR NOEMI Protocol As Directed Oxytocin/Sodium Chloride 30 units in 500 mls @ 40 mls/hr 09/15/20 18:36 Pitocin/Ns 30 Unit/500ml IV TITR NOEMI Protocol Ampicillin Sodium 2 gm in 100 mls @ 100 mls/hr 09/15/20 21:00 09/16/20 04:47 Ampicillin/Ns 2 Gm/100 Ml IV 09/17/20 15:59 100 mls/hr Q6H NOEMI Administration Protocol Clindamycin HCl 900 mg in 50 mls @ 100 mls/hr 09/15/20 21:00 09/16/20 06:31 Cleocin 900 Mg/50 Ml IV 100 mls/hr Q8H NOEMI Administration Protocol Gentamicin Sulfate 400 mg/ 110 mls @ 200 mls/hr 09/15/20 22:00 09/15/20 21:42 Sodium Chloride IV 09/16/20 22:32 200 mls/hr Q24H NOEMI Administration Protocol Ibuprofen 800 mg 09/15/20 18:36 09/16/20 10:40 Ibuprofen 800 Mg Tab PO 800 mg Q6H PRN Administration Pain, Moderate (4-6) Magnesium Hydroxide 30 ml 09/15/20 18:36 Magnesium Hydroxide (Mom) Oral Liqd Udc PO QHS PRN Constip Unrelieved By Senna Morphine Sulfate 2 mg 09/15/20 18:36 09/15/20 22:23 Morphine 2 Mg/1 Ml Inj IV 2 mg Q4H PRN Administration Pain, Moderate (4-6) Multi-Ingredient Ointment 1 applic 09/15/20 18:36 Lanolin/Zinc/Dimethicone (Lansinoh) 7 Gm TP PRN PRN dryness/cracking Naloxone HCl 0.1 mg 09/15/20 18:36 Naloxone 0.4 Mg/1 Ml Inj IV Q2MIN PRN Res Rate </= 8 or 02 SAT < 92% Ondansetron HCl 4 mg 09/15/20 17:00 Ondansetron 4 Mg/2 Ml Inj IV Q4H PRN Nausea And Vomiting Ondansetron HCl 4 mg 09/15/20 18:36 Ondansetron 4 Mg/2 Ml Inj IV Q8H PRN Nausea And Vomiting Oxycodone/Acetaminophen 2 tab 09/15/20 18:36 09/16/20 10:40 Oxycodone /Acetaminophen 5-325mg Tab PO 2 tab Q6H PRN Administration Pain, Moderate (4-6) Simethicone 80 mg 09/15/20 18:36 Simethicone 80 Mg Chew Tab PO Q6H PRN Gas pain Sodium Chloride 10 ml 09/15/20 18:36 Sodium Chloride 0.9% 10 Ml Flush Syringe IV 09/16/20 18:35 PRN NR Witch Lupis/Glycerin 1 each 09/15/20 18:36 09/15/20 20:36 Witch Lupis/ Glycerin Pad TP 1 each PRN PRN Administration Hemorrhoids/cleansing/soothing
[2020-09-16] MEDS ORDERED: SODIUM CHLORIDE 0.9% 500 ML 500 ML IV SCH (20:00)
[2020-09-16] MEDS: HYDROmorphone 1 MG/1 ML INJ IV PRN (21:52)
[2020-09-17] MEDS: GENTAMICIN 400 MG in SODIUM CHLORIDE 0.9% 100 ML IV SCH (02:51)
[2020-09-17] MEDS: HYDROmorphone 1 MG/1 ML INJ IV PRN (02:59)
[2020-09-17] MEDS: AMPICILLIN/NS 2 GM/100 ML 2 GM/100 ML BAG IV SCH (05:17)
[2020-09-17] MEDS: IBUPROFEN 800 MG TAB PO PRN ×3 (05:18→23:34)
[2020-09-17] MEDS: oxyCODONE /ACETAMINOPHEN 5-325MG TAB PO PRN ×2 (07:37→16:38)
[2020-09-17] MEDS: ASCORBIC ACID 500 MG TAB PO SCH ×3 (07:37→21:35)
[2020-09-17] MEDS: FERROUS SULFATE 325 MG TAB PO SCH ×3 (07:37→21:35)
[2020-09-17 08:31] LABS: Basophils % (Auto) 0.3 % (0.0-1.8); Eosinophils # (Auto) 0.1 K/mm3 (0.0-0.4); Eosinophils % (Auto) 0.9 % (0.0-4.3); Hematocrit 20.9 % (30.3-42.9); Hemoglobin 7.1 gm/dl (10.1-14.3); Lymphocytes # (Auto) 1.3 K/mm3 (1.2-5.4); Lymphocytes % (Auto) 10.1 % (13.4-35.0); Mean Corpuscular HGB Conc 34 % (30-34); Mean Corpuscular Volume 88 fl (79-97); Monocytes # (Auto) 1.2 K/mm3 (0.0-0.8); Monocytes % (Auto) 9.3 % (0.0-7.3); Platelet Count 164 K/mm3 (140-440); Red Blood Count 2.38 M/mm3 (3.65-5.03); Red Cell Distribution Width 16.2 % (13.2-15.2)
--- NOTE | 2020-09-17 09:16 | Progress Note ---
Subjective - Subjective Date of service: 09/17/20 Principal diagnosis: C/s for twins, [place] FOR PP HEMMORHAGE, ANEMIA FORM BLOOD LOSS Interval history: hb 7 WBC 12 VSS declines PRBCS-recommendation for two units PRBCs PE benign-no VB dc abx-afebrile with resolving leukocytosis heplock IV repeat h/h in AM hemodynamically stable case discussed with RN on am shift Joselito Pacheco MD Patient reports: appetite normal, voiding normally, pain well controlled, ambulating normally [place]: doing well Objective - Vital Signs Latest vital signs: Vital Signs Temp Pulse Resp BP BP Pulse Ox 09/17/20 08:10 97.6 F 88 20 128/70 09/17/20 00:00 98.4 F 91 H 20 129/78 100 09/16/20 16:39 98.3 F 101 H 18 113/63 99 09/16/20 12:10 97.7 F 95 H 20 116/75 09/16/20 10:14 98.0 F 94 H 20 112/69 99 Intake and Output 09/16/20 09/17/20 09/17/20 23:59 07:59 15:59 Intake Total 660 120 360 Output Total 600 Balance 60 120 360 Intake: IV 100 AMPICILLIN/NS 2 GM/100 ML 100 2 gm In 100 ml @ 100 mls /hr IV Q6H [facility] Rx#: [id number] Oral 320 120 360 Intake, Free Water 240 Output: Urine 600 Void 600 Other: Total, Intake Amount 320 120 360 Total, Output Amount 600 # Voids Void 1 1 - Labs Labs: Abnormal lab results 09/17/20 Range/Units 08:19 WBC 12.7 H (4.5-11.0) K/mm3 RBC 2.38 L (3.65-5.03) M/mm3 Hgb 7.1 L (10.1-14.3) gm/dl Hct 20.9 L D (30.3-42.9) % RDW 16.2 H (13.2-15.2) % Lymph % (Auto) 10.1 L (13.4-35.0) % [place] % (Auto) 9.3 H (0.0-7.3) % [place] # (Auto) 1.2 H (0.0-0.8) K/mm3 Seg Neutrophils % 79.4 H (40.0-70.0) % Seg Neutrophils # 10.1 H (1.8-7.7) K/mm3
[2020-09-17] MEDS: ONDANSETRON 4 MG/2 ML INJ IV PRN ×2 (10:17→17:58)
[2020-09-17] MEDS ORDERED: SODIUM CHLORIDE 0.9% 500 ML 500 ML IV SCH (11:00)
[2020-09-17] MEDS: DOCUSATE SODIUM 100 MG CAP PO SCH ×2 (11:05→21:35)
[2020-09-17 19:13] LABS: Basophils % (Auto) 0.1 % (0.0-1.8); Eosinophils # (Auto) 0.1 K/mm3 (0.0-0.4); Eosinophils % (Auto) 1.1 % (0.0-4.3); Hematocrit 22.8 % (30.3-42.9); Hemoglobin 7.8 gm/dl (10.1-14.3); Lymphocytes % (Auto) 8.6 % (13.4-35.0); Mean Corpuscular HGB Conc 34 % (30-34); Mean Corpuscular Volume 90 fl (79-97); Monocytes % (Auto) 8.6 % (0.0-7.3); Platelet Count 182 K/mm3 (140-440); Red Blood Count 2.54 M/mm3 (3.65-5.03); Red Cell Distribution Width 16.2 % (13.2-15.2)
[2020-09-17] MEDS: HYDROcodone/ACETAMINOPHEN 5-325 MG TAB PO PRN (21:33)
[2020-09-18] MEDS: HYDROcodone/ACETAMINOPHEN 5-325 MG TAB PO PRN ×3 (02:46→15:32)
[2020-09-18] MEDS: IBUPROFEN 800 MG TAB PO PRN ×2 (05:47→12:20)
[2020-09-18] MEDS: ASCORBIC ACID 500 MG TAB PO SCH (08:28)
[2020-09-18] MEDS: FERROUS SULFATE 325 MG TAB PO SCH (08:28)
[2020-09-18] MEDS: DOCUSATE SODIUM 100 MG CAP PO SCH (09:53)
[2020-09-18 10:08] LABS: Hemoglobin 9.5 gm/dl (10.1-14.3)
--- NOTE | 2020-09-18 10:16 | Progress Note ---
Assessment and Plan - Patient Problems (1) Anemia Current Visit: Yes Status: Acute Qualifiers: Other causes of anemia: acute posthemorrhagic Subjective - Subjective Date of service: 09/18/20 Principal diagnosis: C/s for twins, [place] FOR PP HEMMORHAGE, ANEMIA FORM BLOOD LOSS Patient reports: appetite normal : doing well Objective - Vital Signs Latest vital signs: Vital Signs Temp Pulse Resp BP BP Pulse Ox 09/18/20 09:53 18 09/18/20 08:16 98.5 F 97 H 18 130/88 98 09/18/20 05:47 20 09/18/20 04:30 98.7 F 74 18 121/78 09/18/20 02:46 20 09/17/20 23:34 20 09/17/20 23:24 98.2 F 80 20 126/88 98 09/17/20 22:54 98.6 F 86 20 129/80 99 09/17/20 22:24 98.5 F 90 18 133/86 99 09/17/20 21:54 98.6 F 82 18 128/82 99 09/17/20 21:52 98.5 F 86 18 131/84 98 09/17/20 21:33 20 09/17/20 21:24 98.7 F 94 H 20 132/86 99 09/17/20 21:09 98.5 F 91 H 18 134/86 09/17/20 16:08 98.6 F 100 H 20 124/76 09/17/20 14:30 98.3 F 99 H 16 121/77 99 09/17/20 13:50 98.0 F 104 H 18 115/79 98 09/17/20 13:05 97.9 F 93 H 16 130/85 97 09/17/20 12:35 97.9 F 93 H 16 133/89 98 09/17/20 12:05 98.1 F 94 H 16 117/77 98 09/17/20 11:50 97.9 F 87 18 109/65 98 Intake and Output 09/17/20 09/18/20 09/18/20 23:59 07:59 15:59 Intake Total 1030 300 Balance 1030 300 Intake: Oral 480 Intake, Free Water 300 300 Blood Product 250 Leukoreduced Red Blood 250 Cells Unit [id number] Other: Total, Intake Amount 240 # Voids Void 1 1 - Labs Labs: Abnormal lab results 09/15/20 09/17/20 09/18/20 Range/Units 10:20 18:41 09:00 WBC 11.4 H (4.5-11.0) K/mm3 RBC 2.54 L (3.65-5.03) M/mm3 Hgb 7.8 L 9.5 L (10.1-14.3) gm/dl Hct 22.8 L 28.0 L (30.3-42.9) % RDW 16.2 H (13.2-15.2) % Lymph % (Auto) 8.6 L (13.4-35.0) % [place] % (Auto) 8.6 H (0.0-7.3) % Lymph # (Auto) 1.0 L (1.2-5.4) K/mm3 [place] # (Auto) 1.0 H (0.0-0.8) K/mm3 Seg Neutrophils % 81.6 H (40.0-70.0) % Seg Neutrophils # 9.3 H (1.8-7.7) K/mm3 Crossmatch See Detail
--- NOTE | 2020-09-18 10:22 | Discharge Summary ---
Providers - Providers Date of Admission: 09/15/20 09:06 Date of discharge: 09/18/20 Attending physician: ANTONIETA DIAS 09/15/20 15:19 Consult to Interventional Radiology [CONS] Stat Consulting Provider: BEBETO EGAN Reason For Exam: embolization of uterine vessel; PPH, c/s D#0 Notified:: radiology 09/15/20 18:36 Consult to Telecommunicator Supervisor [CONS] Routine Reason For Exam: 09/17/20 07:19 Consult to Case Management [CONS] Routine Services Needed at Discharge: Other Notified:: [id number] Phone number called:: [phone] Comment:: +benzo drug screen Additional Physician Instructions: Primary care physician: ANTONIETA DIAS Hospitalization Delivery: Procedure: section Other procedures: other ([place]) Condition at discharge: Stable Disposition: [id number] TO HOME OR SELFCARE - Discharge Diagnoses (1) Anemia Status: Acute Qualifiers: Other causes of anemia: acute posthemorrhagic Plan - Discharge Medications Prescriptions: Ibuprofen [Motrin] 800 mg PO Q8HR PRN 14 Days #40 tablet PRN Reason: Pain, Mild (1-3) oxyCODONE /ACETAMINOPHEN [Percocet 5/325] 2 tab PO Q4HR 14 Days #30 tab - Provider Discharge Summary Activity: routine Diet: routine Instructions: routine Additional instructions: [] Smoking cessation referral if applicable(refer to patient education folder for contact #) [] Refer to [facility]'s [facility] Booklet Call your doctor immediately for: * Fever > 100.5 * Heavy vaginal bleeding ( >1 pad per hour) * Severe persistent headache * Shortness of breath * Reddened, hot, painful area to leg or breast * Drainage or odor from incision. * Keep incision clean and dry at all times and follow doctor's instructions regarding bathing/showering - Follow up plan Forms: [facility] Discharge Summary
[2020-09-18 14:43] VITALS: BP 127/87
== END 2020-09-18 18:13 | disposition home or self-care (01) | DRG 765 ==
LOC: APU 09:06 → LD 18:11 → OB 09-16 09:33
PROVIDERS: ADMIT Obstetrics & Gynecology; ATTEND Obstetrics & Gynecology
PROC: 10D00Z1 Extraction of Products of Conception, Low, Open Approach (ICD-10-PCS; principal; 2020-09-15)
PROC: 04LF3DU Occlusion of Left Uterine Artery with Intraluminal Device, Percutaneous Approach (ICD-10-PCS; 2020-09-15)
PROC: 04LE3DT Occlusion of Right Uterine Artery with Intraluminal Device, Percutaneous Approach (ICD-10-PCS; 2020-09-15)
PROC: B34JZZZ Ultrasonography of Left Upper Extremity Arteries (ICD-10-PCS; 2020-09-15)
PROC: B41J1ZZ Fluoroscopy of Other Lower Arteries using Low Osmolar Contrast (ICD-10-PCS; 2020-09-15)
PROC: 30233N1 Transfusion of Nonautologous Red Blood Cells into Peripheral Vein, Percutaneous Approach (ICD-10-PCS; 2020-09-17)
DX: O36.5931 Maternal care for other known or suspected poor fetal growth, third trimester, fetus 1 (principal); D62 Acute posthemorrhagic anemia; O99.324 Drug use complicating childbirth; O72.1 Other immediate postpartum hemorrhage; O32.1XX0 Maternal care for breech presentation, not applicable or unspecified; O99.02 Anemia complicating childbirth; F12.10 Cannabis abuse, uncomplicated; O30.093 Twin pregnancy, unable to determine number of placenta and number of amniotic sacs, third trimester; Z20.822 Contact with and (suspected) exposure to COVID-19; Z3A.37 37 weeks gestation of pregnancy; Z37.2 Twins, both liveborn; Z79.899 Other long term (current) drug therapy
CPT/HCPCS: 36415; 37243; 80053; 80307; 82565; 83615; 84450; 84460; 84550; 85007; 85014; 85018; 85025; 85027; 86850; 86900; 86901; 86920; 87040; 88307; 96360; G0378; A4649; C1769; C1894; J0290; J0690; J1100; J1170; J1580; J1644; J1885; J2210; J2250; J2270; J2405; J2765; J3490; J7030; J7040; J7120; P9016; Q9967; U0003